=== PATIENT | male | born 1965 | race Caucasian/White ===

== ENCOUNTER 2018-03-13 15:19 | Observation (INO) ==
[2018-03-13] MEDS ORDERED: Valproic Acid INJ 500 MG in 0.9 % Sodium Chloride 100 ML IVPB STA (15:23)
[2018-03-13] MEDS ORDERED: 0.9 % Sodium Chloride 1,000 ML IVC ONE (15:24)
--- NOTE | 2018-03-13 15:27 | Emergency Department Note ---
Disposition Clinical Impression: Status epilepticus Disposition: Admitted As Inpatient Condition: Fair Referrals: NONE,PCP [Primary Care Provider] - Forms: ED Satisfaction Letter General Adult HPI - General Chief complaint: ED Seizure Stated complaint: Seizures Time Seen by Provider: 03/13/18 15:21 - Related Data Home Medications Medication Instructions Recorded Confirmed Phenytoin [Dilantin] 50 mg PO 03/13/18 Allergies Allergy/AdvReac Type Severity Reaction Status Date / Time Penicillins [PCN] Allergy Hives Verified 03/13/18 10:45 Past Medical History - Past Medical History Medical history: Reports: non-contributory Psychiatric history: Reports: no psych history - Social History Smoking Status: Never smoker Smokeless Tobacco Status: Yes Alcohol use: Reports: none Drug use: Reports: none Course Vital Signs Temperature 98.8 F 03/13/18 15:21 Pulse Rate 121 03/13/18 15:21 Respiratory Rate 30 03/13/18 15:21 Blood Pressure 137/87 03/13/18 15:21 O2 Sat by Pulse Oximetry 93 03/13/18 15:21 Temperature 98.8 F 03/13/18 15:21 Pulse Rate 121 03/13/18 15:21 Respiratory Rate 30 03/13/18 15:21 Blood Pressure 137/87 03/13/18 15:21 O2 Sat by Pulse Oximetry 94 03/13/18 15:39 Oxygen Delivery Oxygen Delivery Non Rebreather Mask Medical Decision Making - Lab Data Result diagrams: 03/13/18 16:42 03/13/18 16:42 Lab Results 03/13/18 03/13/18 03/13/18 Range/Units 15:30 15:30 15:43 WBC (4.3-11.1) K/mcL RBC (4.19-5.50) M/mcL Hgb (12.9-16.9) g/dL Hct (37.5-50.1) % MCV (83.0-100.0) fL MCH (28.0-33.3) pg MCHC (31.6-35.5) g/dL RDW (11.5-14.5) % Plt Count (140-400) K/mcL MPV (9.4-12.4) fL Immature Gran % (0-4) % Seg Neutrophils % % Lymphocytes % % Monocytes % % Eosinophils % % Basophils % % Neutrophils # (1.6-8.9) K/mcL Lymphocytes # (0.6-4.6) K/mcL Monocytes # (0.0-1.3) K/mcL Eosinophils # (0.0-0.6) K/mcL Basophils # (0.0-0.2) K/mcL Sodium (136-145) mEq/L Potassium (3.5-5.1) mEq/L Chloride (98-107) mEq/L Carbon Dioxide (23-29) mEq/L BUN (6-20) mg/dL Creatinine (0.70-1.30) mg/dL Est GFR ( Amer) (> 60) Est GFR (Non-Af Amer) (> 60) BUN/Creatinine Ratio (6-26) Glucose (70-105) mg/dL POC Glucose 149 H (70-99) mg/dL Calculated Osmolality (280-300) Calcium (8.6-10.3) mg/dL Magnesium (1.6-2.6) mg/dL Urine Color Yellow (Yellow) Urine Clarity Clear (Clear) Urine pH 5.5 (5.0-8.0) pH Units Ur Specific [place] 1.016 (1.010-1.025) Urine Protein 100 H (Neg-Trace) mg/dL Urine Glucose (UA) Normal (Normal) mg/dL Urine Ketones Negative (Negative) mg/dL Urine Blood Moderate H (Negative) Urine Nitrite Negative (Negative) Urine Bilirubin Negative (Negative) Urine Urobilinogen Normal (Normal) mg/dL Ur Leukocyte Esterase Negative (Negative) Urine Microscopic RBC 0-3 (0-3) per hpf Urine Microscopic WBC 0-3 (0-3) per hpf Ur Squamous Epith Cells Many H (None-Few) per lpf Urine Bacteria None Seen (None-Few) per hpf Hyaline Casts None Seen (None-Few) per lpf Urine Opiates Screen Negative (Uuyrqb=905) ng/mL Ur Barbiturates Screen Negative (Lscobf=510) ng/mL Ur Phencyclidine Scrn Negative (Cutoff=25) ng/mL Ur Amphetamines Screen Negative (Kpagkf=8229) ng/mL U Benzodiazepines Scrn Positive H (Dftivc=971) ng/mL Urine Cocaine Screen Negative (Cutoff= 300) ng/mL U Marijuana (THC) Screen Positive H (Cutoff = 50) ng/mL 03/13/18 03/13/18 Range/Units 16:42 16:42 WBC 21.7 H (4.3-11.1) K/mcL RBC 5.30 (4.19-5.50) M/mcL Hgb 15.5 (12.9-16.9) g/dL Hct 44.5 (37.5-50.1) % MCV 84.0 (83.0-100.0) fL MCH 29.2 (28.0-33.3) pg MCHC 34.8 (31.6-35.5) g/dL RDW 14.0 (11.5-14.5) % Plt Count 307 (140-400) K/mcL MPV 9.3 L (9.4-12.4) fL Immature Gran % 1.2 (0-4) % Seg Neutrophils % 90.7 % Lymphocytes % 3.3 % Monocytes % 4.1 % Eosinophils % 0.2 % Basophils % 0.5 % Neutrophils # 19.7 H (1.6-8.9) K/mcL Lymphocytes # 0.7 (0.6-4.6) K/mcL Monocytes # 0.9 (0.0-1.3) K/mcL Eosinophils # 0.0 (0.0-0.6) K/mcL Basophils # 0.1 (0.0-0.2) K/mcL Sodium 138 (136-145) mEq/L Potassium 3.9 (3.5-5.1) mEq/L Chloride 110 H (98-107) mEq/L Carbon Dioxide 17 L (23-29) mEq/L BUN 8 (6-20) mg/dL Creatinine 1.02 (0.70-1.30) mg/dL Est GFR ( Amer) > 60 (> 60) Est GFR (Non-Af Amer) > 60 (> 60) BUN/Creatinine Ratio 8 (6-26) Glucose 92 (70-105) mg/dL POC Glucose (70-99) mg/dL Calculated Osmolality 284 (280-300) Calcium 8.9 (8.6-10.3) mg/dL Magnesium 2.7 H (1.6-2.6) mg/dL Urine Color (Yellow) Urine Clarity (Clear) Urine pH (5.0-8.0) pH Units Ur Specific [place] (1.010-1.025) Urine Protein (Neg-Trace) mg/dL Urine Glucose (UA) (Normal) mg/dL Urine Ketones (Negative) mg/dL Urine Blood (Negative) Urine Nitrite (Negative) Urine Bilirubin (Negative) Urine Urobilinogen (Normal) mg/dL Ur Leukocyte Esterase (Negative) Urine Microscopic RBC (0-3) per hpf Urine Microscopic WBC (0-3) per hpf Ur Squamous Epith Cells (None-Few) per lpf Urine Bacteria (None-Few) per hpf Hyaline Casts (None-Few) per lpf Urine Opiates Screen (Exyhgr=204) ng/mL Ur Barbiturates Screen (Rpvwtz=368) ng/mL Ur Phencyclidine Scrn (Cutoff=25) ng/mL Ur Amphetamines Screen (Jsdyol=5291) ng/mL U Benzodiazepines Scrn (Esivih=803) ng/mL Urine Cocaine Screen (Cutoff= 300) ng/mL U Marijuana (THC) Screen (Cutoff = 50) ng/mL Attestation Statement - Attestation Attestation: I examined this patient and my medical decision-making was reviewed with the Resident Physician. I agree with the documented findings, disposition and treatment plan as described except to the extent set forth below. Patient to the ED with a chief complaint of breakthrough seizure. History provided by EMS this patient is postictal. Patient has had multiple seizures today. 2 witnessed by EMS. He had 5 mg of Versed IV. Review of his chart reveals that he takes valproic acid. No family or friends present to provide any further history. On examination he is somnolent snoring respirations. Plan. Patient postictal at this time. We will monitor closely. Lobe with valproic acid. Basic labs and back. CT head to check for trauma. Patient now more awake and alert. Following basic commands. Had to be sedated with some Ativan to get a head CT. Family now presents stating he had a recent admission at [facility] for the same way had to be intubated. No further seizure activity in the ED. We will load with with Dilantin likely admission. CT negative. Admitted to medicine with neuro consult. Patient awake and alert at this time. Head CT 03/13/18 15:24 IMPRESSION: No acute intracranial abnormality. 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
[2018-03-13] MEDS ORDERED: PHENYTOIN IVPB ONE (15:37)
[2018-03-13 15:56] LABS: Bilirubin,Urine Negative (Negative); Blood,Urine Moderate (Negative); Clarity,Urine Clear (Clear); Color,Urine Yellow (Yellow); Glucose,Urine (UA) Normal (Normal); Ketones,Urine Negative (Negative); Leukocyte Esterase,Urine Negative (Negative); Nitrite,Urine Negative (Negative); PH,Urine 5.5 pH Units (5.0-8.0); Protein,Urine 100 mg/dL (Neg-Trace); Specific Gravity,Urine 1.016 (1.010-1.025); Urobilinogen,Urine Normal (Normal)
[2018-03-13 15:59] LABS: Bacteria,Urine None Seen per hpf (None-Few); Hyaline Casts,Urine None Seen per lpf (None-Few); RBC,Urine 0-3 per hpf (0-3); Squamous Epithelial Cell,Urine Many per lpf (None-Few); WBC,Urine 0-3 per hpf (0-3)
--- NOTE | 2018-03-13 16:04 | Emergency Department Note ---
Disposition Clinical Impression: Status epilepticus Disposition: Admitted As Inpatient Condition: Fair Time of Disposition: 18:01 Seizure HPI - General Chief Complaint: ED Seizure Stated Complaint: Seizures Time Seen by Provider: 03/13/18 15:21 Source: EMS Mode of arrival: EMS Limitations: no limitations Nursing Notes Reviewed: Yes Vital Signs Reviewed: Yes - History of Present Illness HPI Narrative: Patient presents to the ED via EMS and was seen and evaluated upon arrival. Patient has a history of seizure disorder and is followed by a neurologist here. 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 He is supposed to be taking 150 mg of phenytoin 3 times a day. However, patient's family states that he has been noncompliant with this. According EMS. The patient had 2 witnessed generalized tonic-clonic seizures today. When EMS arrived they state that the patient was alert and responding but when they got him onto the cot. He had another seizure and they administered 5 mg of Versed. Upon arrival to the ED, he is postictal and unable to answer any questions. Family reported no recent falls or injury. States he is otherwise healthy. - Related Data Home Medications Medication Instructions Recorded Confirmed Phenytoin [Dilantin] 50 mg PO 03/13/18 Allergies Allergy/AdvReac Type Severity Reaction Status Date / Time Penicillins [PCN] Allergy Hives Verified 03/13/18 10:45 Review of Systems: As reviewed in the HPI. All other systems reviewed are negative or normal. Past Medical History - Past Medical History Attestation: Yes The following information was validated with the patient. Source: patient, old records reviewed, obtained from family Medical history: Reports: non-contributory Psychiatric history: Reports: no psych history - Social History Smoking Status: Never smoker Smokeless Tobacco Status: Yes Alcohol use: Reports: none Drug use: Reports: none Physical Exam - General Limitations: other (Postictal) General appearance: obtunded - Head Head exam: atraumatic, normocephalic, normal inspection - Eye Eye exam: Present: PERRL - ENT ENT exam: other (Extremely poor dentition) - Chest Chest inspection: Present: normal inspection, symmetric chest wall rise - Respiratory Respiratory exam: Present: other (Course breath sounds). Absent: normal lung sounds bilaterally, respiratory distress - Cardiovascular Cardiovascular exam: Present: tachycardia, normal heart sounds - Abdominal Exam Abdominal exam: Present: soft, Non-Tender. Absent: tenderness, distention, guarding, rebound, rigidity - Extremities Exam Extremities exam: Present: normal capillary refill. Absent: pedal edema - Expanded Lower Extremity Exam Hip/Pelvis exam: Present: pelvis stable - Neurological Exam Neurological exam: Present: CN II-XII intact (Grossly, the patient is obtunded) . Absent: alert, oriented X3 - Skin Skin exam: Present: warm, dry, intact, normal color Course Course Narrative: Patient presenting after a seizure. He did get 5 mg of Versed prior to arrival and is currently postictal. We will see if he starts to wake up. We will get labs and a head CT. Likely admission, since this is an increase from his baseline. - Reevaluation(s) Reevaluation #1: Head CT did not show any acute changes. Patient is now awake, alert, oriented. Not complaining of anything. He will be admitted to the hospitalist service with neurology consult. I spoke with the hospitalist Dr. Alcaraz and the neurologist Dr. Walden. Both agreeable to plan. Patient was loaded with phenytoin and his levels are currently pending. Vital Signs Temperature 98.8 F 03/13/18 15:21 Pulse Rate 121 03/13/18 15:21 Respiratory Rate 30 03/13/18 15:21 Blood Pressure 137/87 03/13/18 15:21 O2 Sat by Pulse Oximetry 93 03/13/18 15:21 Temperature 98.8 F 03/13/18 15:21 Pulse Rate 74 03/13/18 18:19 Respiratory Rate 18 03/13/18 18:19 Blood Pressure 116/87 03/13/18 18:19 O2 Sat by Pulse Oximetry 98 03/13/18 18:19 Oxygen Delivery Oxygen Delivery Room Air Seizure - Medical Records Medical records reviewed: Yes I reviewed the patient's medical records. - Lab Data Lab results reviewed: Yes I reviewed the patient's lab results. Result diagrams: 03/13/18 16:42 03/13/18 16:42 Lab Results 03/13/18 03/13/18 03/13/18 Range/Units 15:30 15:30 15:43 WBC (4.3-11.1) K/mcL RBC (4.19-5.50) M/mcL Hgb (12.9-16.9) g/dL Hct (37.5-50.1) % MCV (83.0-100.0) fL MCH (28.0-33.3) pg MCHC (31.6-35.5) g/dL RDW (11.5-14.5) % Plt Count (140-400) K/mcL MPV (9.4-12.4) fL Immature Gran % (0-4) % Seg Neutrophils % % Lymphocytes % % Monocytes % % Eosinophils % % Basophils % % Neutrophils # (1.6-8.9) K/mcL Lymphocytes # (0.6-4.6) K/mcL Monocytes # (0.0-1.3) K/mcL Eosinophils # (0.0-0.6) K/mcL Basophils # (0.0-0.2) K/mcL Sodium (136-145) mEq/L Potassium (3.5-5.1) mEq/L Chloride (98-107) mEq/L Carbon Dioxide (23-29) mEq/L BUN (6-20) mg/dL Creatinine (0.70-1.30) mg/dL Est GFR ( Amer) (> 60) Est GFR (Non-Af Amer) (> 60) BUN/Creatinine Ratio (6-26) Glucose (70-105) mg/dL POC Glucose 149 H (70-99) mg/dL Calculated Osmolality (280-300) Calcium (8.6-10.3) mg/dL Magnesium (1.6-2.6) mg/dL Urine Color Yellow (Yellow) Urine Clarity Clear (Clear) Urine pH 5.5 (5.0-8.0) pH Units Ur Specific [place] 1.016 (1.010-1.025) Urine Protein 100 H (Neg-Trace) mg/dL Urine Glucose (UA) Normal (Normal) mg/dL Urine Ketones Negative (Negative) mg/dL Urine Blood Moderate H (Negative) Urine Nitrite Negative (Negative) Urine Bilirubin Negative (Negative) Urine Urobilinogen Normal (Normal) mg/dL Ur Leukocyte Esterase Negative (Negative) Urine Microscopic RBC 0-3 (0-3) per hpf Urine Microscopic WBC 0-3 (0-3) per hpf Ur Squamous Epith Cells Many H (None-Few) per lpf Urine Bacteria None Seen (None-Few) per hpf Hyaline Casts None Seen (None-Few) per lpf Urine Opiates Screen Negative (Yotykk=442) ng/mL Ur Barbiturates Screen Negative (Geyokm=109) ng/mL Phenytoin (10.0-20.0) mcg/mL Ur Phencyclidine Scrn Negative (Cutoff=25) ng/mL Ur Amphetamines Screen Negative (Diaijh=2259) ng/mL U Benzodiazepines Scrn Positive H (Epwnfp=443) ng/mL Urine Cocaine Screen Negative (Cutoff= 300) ng/mL U Marijuana (THC) Screen Positive H (Cutoff = 50) ng/mL 03/13/18 03/13/18 Range/Units 16:42 16:42 WBC 21.7 H (4.3-11.1) K/mcL RBC 5.30 (4.19-5.50) M/mcL Hgb 15.5 (12.9-16.9) g/dL Hct 44.5 (37.5-50.1) % MCV 84.0 (83.0-100.0) fL MCH 29.2 (28.0-33.3) pg MCHC 34.8 (31.6-35.5) g/dL RDW 14.0 (11.5-14.5) % Plt Count 307 (140-400) K/mcL MPV 9.3 L (9.4-12.4) fL Immature Gran % 1.2 (0-4) % Seg Neutrophils % 90.7 % Lymphocytes % 3.3 % Monocytes % 4.1 % Eosinophils % 0.2 % Basophils % 0.5 % Neutrophils # 19.7 H (1.6-8.9) K/mcL Lymphocytes # 0.7 (0.6-4.6) K/mcL Monocytes # 0.9 (0.0-1.3) K/mcL Eosinophils # 0.0 (0.0-0.6) K/mcL Basophils # 0.1 (0.0-0.2) K/mcL Sodium 138 (136-145) mEq/L Potassium 3.9 (3.5-5.1) mEq/L Chloride 110 H (98-107) mEq/L Carbon Dioxide 17 L (23-29) mEq/L BUN 8 (6-20) mg/dL Creatinine 1.02 (0.70-1.30) mg/dL Est GFR ( Amer) > 60 (> 60) Est GFR (Non-Af Amer) > 60 (> 60) BUN/Creatinine Ratio 8 (6-26) Glucose 92 (70-105) mg/dL POC Glucose (70-99) mg/dL Calculated Osmolality 284 (280-300) Calcium 8.9 (8.6-10.3) mg/dL Magnesium 2.7 H (1.6-2.6) mg/dL Urine Color (Yellow) Urine Clarity (Clear) Urine pH (5.0-8.0) pH Units Ur Specific [place] (1.010-1.025) Urine Protein (Neg-Trace) mg/dL Urine Glucose (UA) (Normal) mg/dL Urine Ketones (Negative) mg/dL Urine Blood (Negative) Urine Nitrite (Negative) Urine Bilirubin (Negative) Urine Urobilinogen (Normal) mg/dL Ur Leukocyte Esterase (Negative) Urine Microscopic RBC (0-3) per hpf Urine Microscopic WBC (0-3) per hpf Ur Squamous Epith Cells (None-Few) per lpf Urine Bacteria (None-Few) per hpf Hyaline Casts (None-Few) per lpf Urine Opiates Screen (Cqvkib=534) ng/mL Ur Barbiturates Screen (Juhkte=149) ng/mL Phenytoin < 0.5 L (10.0-20.0) mcg/mL Ur Phencyclidine Scrn (Cutoff=25) ng/mL Ur Amphetamines Screen (Ceyubf=1698) ng/mL U Benzodiazepines Scrn (Yeegjv=199) ng/mL Urine Cocaine Screen (Cutoff= 300) ng/mL U Marijuana (THC) Screen (Cutoff = 50) ng/mL - Radiology Data Radiology results reviewed: Yes I reviewed the patient's radiology results. - EKG Data EKG attestation: Yes I reviewed and interpreted this EKG. EKG results narrative: Sinus tach, rate 119, AL interval 173,, QRS 86, QTC 368, RVH, no acute ischemic changes
[2018-03-13] MEDS ORDERED: *HR* LORazepam 2 MG/ML VIAL IVP ONE ×2 (16:07→16:21)
[2018-03-13] MEDS ORDERED: *HR* LORazepam 2 MG/ML VIAL ONE (16:22)
[2018-03-13 16:46] LABS: Amphetamine Screen,Urine Negative ng/mL (Cutoff=1000); Barbiturate Screen,Urine Negative ng/mL (Cutoff=200); Benzodiazepines Screen,Urine Positive ng/mL (Cutoff=200); Cannabinoid Screen,Urine Positive ng/mL (Cutoff = 50); Cocaine Screen,Urine Negative ng/mL (Cutoff= 300); Opiate Screen,Urine Negative ng/mL (Cutoff=300); Phencyclidine Screen,Urine Negative ng/mL (Cutoff=25)
[2018-03-13 17:04] LABS: Basophils # 0.1 K/mcL (0.0-0.2); Basophils % 0.5 %; Eosinophils % 0.2 %; Hematocrit 44.5 % (37.5-50.1); Hemoglobin 15.5 g/dL (12.9-16.9); Immature Granulocytes % 1.2 % (0-4); Lymphocytes # 0.7 K/mcL (0.6-4.6); Lymphocytes % 3.3 %; Mean Corpuscular HGB Conc 34.8 g/dL (31.6-35.5); Mean Corpuscular Hemoglobin 29.2 pg (28.0-33.3); Mean Platelet Volume 9.3 fL (9.4-12.4); Monocytes # 0.9 K/mcL (0.0-1.3); Monocytes % 4.1 %; Neutrophils # 19.7 K/mcL (1.6-8.9); Platelet Count 307 K/mcL (140-400); Segmented Neutrophils % 90.7 %
[2018-03-13 17:24] LABS: BUN/Creatinine Ratio 8 (6-26); Blood Urea Nitrogen 8 mg/dL (6-20); Calcium 8.9 mg/dL (8.6-10.3); Carbon Dioxide 17 mEq/L (23-29); Chloride 110 mEq/L (98-107); Glucose 92 mg/dL (70-105); Magnesium 2.7 mg/dL (1.6-2.6); Osmolality,Calculated 284 (280-300); Potassium 3.9 mEq/L (3.5-5.1); Sodium 138 mEq/L (136-145); eGFR For African Americans > 60 (> 60); eGFR For Non-African Americans > 60 (> 60)
[2018-03-13] MEDS ORDERED: Naloxone 0.4 MG/ML INJ IVP PRN (17:57)
[2018-03-13] MEDS ORDERED: *HR* LORazepam 2 MG/ML VIAL IVP PRN (18:00)
[2018-03-13 18:03] LABS: Phenytoin (Dilantin) < 0.5 mcg/mL (10.0-20.0)
[2018-03-13] MEDS ORDERED: Sodium Bicarbonate 150 MEQ in D5% in Water 1,000 ML IVC SCH (18:15)
--- NOTE | 2018-03-13 18:17 | Internal Med History&Physical ---
Date of Encounter: 03/13/18 Time of Encounter: 17:45 Internal Medicine - H&P: HPI Chief complaint: seizure Admitted From: Home Plans for Post Hospital Care: Home History of present illness: Mr. Kumar is a 52 year old male with PMH of seizures who was brought to the ER by EMS s/p a witnessed tonic clonic seizure. Pt is currently on AAO x 3 and denies any discomfort, however states he does not recall any of the preceding events prior or after the seizure. Pt's seizure was witnessed by his brother in law. Pt was noted to have loss of bladder control during his seizure. Pt reports of having a seizure earlier this week as well. He lives alone and is unkept, with poor oral hygiene. He reports of smoking marijuana few times a week. As per his brother (present at bedside), pt has not been compliant with his medication. As per pharmacy records, pt has not filled his prescription in the last two weeks. His phenytoin level is less than 0.5. Currently he is resting in bed and denies any headache, dizziness, sob, chest pain, n/v, fever, or chills. Past Med Surg Social Fam HX - Past Medical History Medical history: non-contributory Psychiatric history: no psych history - Social History Smoking Status: Never smoker Smokeless Tobacco Status: Yes Alcohol use: none Drug use: none Internal Medicine - H&P: Meds Phenytoin [Dilantin] 50 mg PO 03/13/18 [History] 3 Allergy/AdvReac Type Severity Reaction Status Date / Time Penicillins [PCN] Allergy Hives Verified 03/13/18 10:45 All Systems PM: A 10-system review of systems was performed and is negative for pertinent findings except as documented above in the HPI. - Constitutional Constitutional: as per HPI, no chills, no excessive sweating, no fatigue, no falls, no lethargy, no malaise, no night sweats - Constitutional Vitals: Temp Pulse Resp BP Pulse Ox 98.8 F 121 30 137/87 94 03/13/18 15:21 03/13/18 15:21 03/13/18 15:21 03/13/18 15:21 03/13/18 15:39 General appearance: Present: A&O X 3 (dishevele, unkept, poor oral hygiene), no acute distress - Head Head exam: Present: atraumatic, normocephalic - Eye Eye exam: Present: conjuntiva pink, sclera anicteric - Respiratory Respiratory exam: Present: CTAB. Absent: accessory muscle use, rales, rhonchi, wheezes - Cardiovascular Cardiovascular exam: Present: RRR, +S1, +S2. Absent: diastolic murmur, gallop, rubs, systolic murmur - GI/Abdominal GI/Abdominal exam: Present: normal bowel sounds, soft, no peritoneal signs. Absent: distended, tenderness - Extremities Exam Extremities exam: Present: warm, radial pulses palpable and symmetrical. Absent : calf tenderness, cyanotic, pedal edema - Neurological Exam Neurological exam: Present: oriented X3 Internal Med - H&P Results - Labs CBC & Chem 7: 03/13/18 16:42 03/13/18 16:42 Labs: Short CBC 03/13/18 Range/Units 16:42 WBC 21.7 H (4.3-11.1) K/mcL Hgb 15.5 (12.9-16.9) g/dL Hct 44.5 (37.5-50.1) % Plt Count 307 (140-400) K/mcL Neutrophils # 19.7 H (1.6-8.9) K/mcL BMP 03/13/18 16:42 Sodium 138 Potassium 3.9 Chloride 110 H Carbon Dioxide 17 L BUN 8 Creatinine 1.02 Glucose 92 Calcium 8.9 Urine 03/13/18 Range/Units 15:30 Urine Color Yellow (Yellow) Urine Clarity Clear (Clear) Urine pH 5.5 (5.0-8.0) pH Units Ur Specific [place] 1.016 (1.010-1.025) Urine Protein 100 H (Neg-Trace) mg/dL Urine Glucose (UA) Normal (Normal) mg/dL - Impressions ITS Impressions Head CT 03/13/18 15:24 IMPRESSION: No acute intracranial abnormality. 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 Diffuse atrophic changes with findings suggesting chronic microvascular ischemia D/ / Jose Cao MD / Jsoe Cao MD Interpreting Provider: Jose Cao MD - Assessment and plan (1) Status epilepticus Current Visit: Yes Status: Acute Assessment and plan: Recurrent seizures likely secondary to med noncompliance Phenytoin level less than 0.5 Pt received Phenytoin 1275mg IV in the ER continue Phenytoin 100mg PO q8h ativan 1mg IV q6h prn seizure will continue to closely monitor neurology evaluation requested by the ER physician CT head report reviewed (2) Metabolic acidosis Current Visit: Yes Status: Acute Assessment and plan: likely secondary to seizure will start pt on bicarb gtt (3amp in D5w at 75cc/hr x one bag) will continue to closely monitor (3) Leukocytosis Current Visit: Yes Status: Acute Assessment and plan: likely reactive no clinical signs of infectious etiology present at this time will continue to monitor Qualifiers: Leukocytosis type: unspecified Qualified Code(s): D72.829 - Elevated white blood cell count, unspecified (4) DVT prophylaxis Current Visit: Yes Status: Acute Assessment and plan: heparin SQ - Time Spent With Patient Total time spent is greater than 50% in coordination of care (as documented) at patient's floor/unit and/or counseling patient:
[2018-03-13] MEDS: *HR* Heparin 5,000 UNIT/ML VIAL SQ SCH (20:50)
[2018-03-14] MEDS: *HR* Heparin 5,000 UNIT/ML VIAL SQ SCH ×2 (01:54→08:57)
[2018-03-14 06:46] LABS: BUN/Creatinine Ratio 8 (6-26); Blood Urea Nitrogen 8 mg/dL (6-20); Calcium 8.5 mg/dL (8.6-10.3); Carbon Dioxide 24 mEq/L (23-29); Chloride 109 mEq/L (98-107); Glucose 91 mg/dL (70-105); Magnesium 2.4 mg/dL (1.6-2.6); Osmolality,Calculated 286 (280-300); Phosphorous 3.4 mg/dL (2.7-4.5); Potassium 3.9 mEq/L (3.5-5.1); Sodium 139 mEq/L (136-145); eGFR For African Americans > 60 (> 60); eGFR For Non-African Americans > 60 (> 60)
[2018-03-14 06:48] VITALS: BP 134/80
[2018-03-14 06:51] LABS: Basophils # 0.1 K/mcL (0.0-0.2); Eosinophils # 0.2 K/mcL (0.0-0.6); Eosinophils % 1.6 %; Hematocrit 43.5 % (37.5-50.1); Hemoglobin 14.5 g/dL (12.9-16.9); Immature Granulocytes % 0.3 % (0-4); Lymphocytes # 3.4 K/mcL (0.6-4.6); Lymphocytes % 25.1 %; Mean Corpuscular HGB Conc 33.3 g/dL (31.6-35.5); Mean Corpuscular Hemoglobin 27.9 pg (28.0-33.3); Mean Corpuscular Volume 83.8 fL (83.0-100.0); Mean Platelet Volume 9.4 fL (9.4-12.4); Monocytes # 1.1 K/mcL (0.0-1.3); Monocytes % 7.8 %; Neutrophils # 8.7 K/mcL (1.6-8.9); Platelet Count 318 K/mcL (140-400); Red Blood Count 5.19 M/mcL (4.19-5.50); Red Cell Distribution Width 14.2 % (11.5-14.5); Segmented Neutrophils % 64.2 %
[2018-03-14] MEDS ORDERED: Divalproex (24 HR) 500 MG TABLET PO SCH (09:15)
--- NOTE | 2018-03-14 09:42 | Discharge Summary ---
Date of Encounter: 03/14/18 Time of Encounter: 09:29 - Discharge Diagnosis (1) Seizure disorder Priority: Primary Status: Acute Assessment and Plan: per hx. Has not seen Neurology in over 2 years. Presented to ED after a witnessed tonic clonic seizure. Reportedly taking Dilantin at home; Dilantin level 0.5. Loaded with Dilantin in ED. Likely secondary to medication non- compliance. Evaluated by Neurology who recommended changing Dilantin to Depakote. Received one time dose Depakote prior to discharge. No further seizure activity during hospitalization. Strongly advised medication compliance and Neurology follow-up (2) Metabolic acidosis Priority: Primary Status: Resolved Assessment and Plan: likely secondary to seizure; resolved with bicarb gtt (3) Leukocytosis Priority: Primary Status: Resolved Assessment and Plan: WBC 21K; afebrile. No tachycardia or hypotension. UA negative, lactic acid not drawn. No signs or symptoms of infection. Suspect reactive. WBC 11K at discharge. Qualifiers: Leukocytosis type: unspecified Qualified Code(s): D72.829 - Elevated white blood cell count, unspecified (4) Polysubstance (excluding opioids) dependence Priority: Primary Status: Acute Assessment and Plan: UDS positive for benzos and marijuana. Cessation advised. Hospital course: See assessment and plan for hospital course Discharge discussed with: patient (Seen and examined at bedside, patient is new to me. Information obtained from chart review and patient report. Says he feels back to baseline and once to discharge home today. No further seizure activity ; reports medication compliance at home. Strongly encouraged medication compliance and follow-up with neurology.) - Time Spent with Patient Total time spent providing and/or coordinating discharge services: - Discharge Medications Prescriptions: Divalproex (24 HR) [Depakote ER (24 HR)] 1,000 mg PO HS #60 tab.er.24h Home Medications: Divalproex (24 HR) [Depakote ER (24 HR)] 1,000 mg PO HS #60 tab.er.24h 03/14/18 [Rx] Allergies/Adverse Reactions: 3 Allergy/AdvReac Type Severity Reaction Status Date / Time Penicillins [PCN] Allergy Hives Verified 03/13/18 10:45 Date of admission: 03/13/18 18:04 Primary care physician: PCP NONE Discharging clinician: Delilah Her Anticipated date of discharge: 03/14/18 - Constitutional Vitals: Temp Pulse Resp BP Pulse Ox 98.6 F 64 20 134/80 95 03/14/18 06:47 03/14/18 06:47 03/14/18 06:47 03/14/18 06:47 03/14/18 06:47 General appearance: Present: A&O X 3 (dishevele, unkept, poor oral hygiene), no acute distress - Head Head exam: Present: atraumatic, normocephalic - Eye Eye exam: Present: PERRL, conjuntiva pink, sclera anicteric Pupils: Present: PERRL - Neck Neck exam general surgery: Present: supple, trachea midline. Absent: lymphadenopathy - Respiratory Respiratory exam: Present: CTAB. Absent: accessory muscle use, rales, rhonchi, wheezes - Cardiovascular Cardiovascular exam: Present: RRR, +S1, +S2. Absent: diastolic murmur, gallop, rubs, systolic murmur - GI/Abdominal GI/Abdominal exam: Present: normal bowel sounds, soft, no peritoneal signs. Absent: distended, tenderness - Extremities Exam Extremities exam: Present: warm, radial pulses palpable and symmetrical. Absent : calf tenderness, cyanotic, pedal edema - Neurological Exam Neurological exam: Present: CN II-XII intact, oriented X3, no focal deficits. Absent: pronater drift, facial droop, speech deficit - Psychiatric Additional comments: Pleasant and cooperative. Denies SI/HI. - Skin Skin exam: Present: dry, intact - Patient Status Disposition: Home, Self-Care Condition: Good Functional capacity at discharge: independent ambulation Overall status at discharge: patient is back to baseline - Discharge Instructions Instructions: Divalproex (By mouth), Epilepsy (DC) Follow Up With: Richard Walden MD [Partnered Physician] - (Please call the office for a follow-up when if you have not heard from them within 2 weeks) NONE,PCP [Primary Care Provider] - (Please call [phone] if you do not have a primary care physician to establish care. If you do primary care physician please follow up with them within 7-10 days) - Diet and Activity Activity: increase activity as tolerated Diet: advance to your usual diet
--- NOTE | 2018-03-14 11:00 | Neurology - Consult Note ---
Date of Encounter: 03/14/18 Time of Encounter: 10:52 Assessment and Plan (1) Seizure disorder Current Visit: Yes Status: Acute Patient with known seizure disorder, been discharged from [facility] due to multiple no shows. May not been compliant with antiepileptic therapy or could be rapid Dilantin metabolizer. Per medical history, was doing reasonably well on Depakote DR 1000mg daily therefore will switch him to Depakote DR 1000mg daily. He will need to follow up with his PCP or neurologist of other practice. He is medically stable and ready to be discharged home from neurology perspective Total time spent on this case is approximately 30 minutes History of Present Illness Chief complaint: seizures HPI: Mr. Kumar is a 52 year old male with PMH significant for known seizure disorder , history of traumatic brain injury who developed two witnessed seizures. Patient known to me and carries diagnosis of traumatic brain injury and seizure disorder. Last seen in office 2016 and has been doing reasonably well on Depakote DR 1000mg daily ( two tablets of 500mg of depakote DR). He had a couple of no shows and was discharged from the neurology office. Patient since then has been taking dilantin 3 tablet tid by some doctor but he tells me that he could not remember. He does not remember how/where/why his seizure medication changed to Dilantin. His phenytoin level in ER was <0.5. He states that he has been taking his medications ( dilantin) regularly. It is unclear whether he is a rapid phenytoin metabolizer or he was not compliant. Currently the patient denies any specific discomforts. His language function is intact. He seems to have short term memory difficulty which is chronic in nature Past Med Surg Social Fam HX - Past Medical History Medical history: non-contributory Psychiatric history: no psych history - Social History Smoking Status: Current every day smoker Packs per day: 1 Smokeless Tobacco Status: No Alcohol use: none Drug use: none - Family History Mother Living Status: Age at : 74 Cause of : cancer Hx Family Cancer: Yes Medications and Allergies Divalproex (24 HR) [Depakote ER (24 HR)] 1,000 mg PO HS #60 tab.er.24h 03/14/18 [Rx] 3 Allergy/AdvReac Type Severity Reaction Status Date / Time Penicillins [PCN] Allergy Hives Verified 03/13/18 10:45 All Systems: The remainder of the systems were reviewed and are negative Physical Examination - Vital Signs Vital Signs: Initial Vital Signs Temp Pulse Resp BP Pulse Ox 98.8 F 121 30 137/87 93 03/13/18 15:21 03/13/18 15:21 03/13/18 15:21 03/13/18 15:21 03/13/18 15:21 - Neurologic Detailed motor examination: full strength in all major muscle groups Motor examination - right side: 5/5: deltoids, biceps, triceps, wrist flexion, wrist extension, die forger, hip flexors, tibialis Anterior, quadriceps, toe extension (EHL), plantarflexion Motor examination - left side: 5/5: deltoids, biceps, triceps, wrist flexion, wrist extension, hip flexors, die forger, quadriceps, tibialis Anterior, toe extension (EHL), plantarflexion Reflexes: Biceps: 2+, Triceps: 2+, Brachioradialis: 2+, Patella: 2+, Achilles: 2 + Mental Status Examination: awake, alert, oriented to person, oriented to place, oriented to time, follows commands appropriately, answers questions appropriately, no agnosia, no aphasia, no aproxia Cranial nerve examination: PERRL, EOMI, visual hardwick intact, corneal reflexes brisk symmetrically, sensory to face intact, mastication intact, no facial asymmetry is present, no dysarthria, hearing is intact symmetrically, soft palate elevates bilaterally upon phonation, gag reflex intact, flexes SCM and trapezius muscles symmetrically with full power, tongue protrudes midline, no atrophy or facial fasiculations present Cerebellar examination: no dysmetria, performs finger to nose and heel to torres symmetrically without ataxia, no gait ataxia, no truncal ataxia, no difficulty with rapid alternating movements Results - Laboratory Findings CBC and BMP: 03/14/18 05:48 03/14/18 05:48 Abnormal lab findings: Abnormal lab results WBC 13.5 K/mcL (4.3-11.1) H 03/14/18 05:48 MCH 27.9 pg (28.0-33.3) L 03/14/18 05:48 Chloride 109 mEq/L (98-107) H 03/14/18 05:48 POC Glucose 149 mg/dL (70-99) H 03/13/18 15:43 Calcium 8.5 mg/dL (8.6-10.3) L 03/14/18 05:48 Urine Protein 100 mg/dL (Neg-Trace) H 03/13/18 15:30 Urine Blood Moderate (Negative) H 03/13/18 15:30 Ur Squamous Epith Cells Many per lpf (None-Few) H 03/13/18 15:30 Phenytoin < 0.5 mcg/mL (10.0-20.0) L 03/13/18 16:42 U Benzodiazepines Scrn Positive ng/mL (Iefril=985) H 03/13/18 15:30 U Marijuana (THC) Screen Positive ng/mL (Cutoff = 50) H 03/13/18 15:30 - Diagnostic Findings Additional findings: CT OF THE HEAD WITHOUT CONTRAST 03/13/2018 5:01 pm TECHNIQUE: CT of the head was performed without the administration of intravenous contrast. Dose modulation, iterative reconstruction, and/or weight based adjustment of the mA/kV was utilized to reduce the radiation dose to as low as reasonably achievable. COMPARISON: 11/28/2017 HISTORY: ORDERING SYSTEM PROVIDED HISTORY: satus epileticus FINDINGS: BRAIN/VENTRICLES: The ventricles and sulci are diffusely enlarged. Again seen is encephalomalacia in the right frontal lobe more than the left. This is unchanged. No acute intracranial hemorrhage is identified. ORBITS: The visualized portion of the orbits demonstrate no acute abnormality. SINUSES: The visualized paranasal sinuses and mastoid air cells demonstrate no acute abnormality. SOFT TISSUES/SKULL: No acute abnormality of the visualized skull or soft tissues. CT/CT head/brain wo con IMPRESSION: No acute intracranial abnormality. 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 If you do primary care physician please follow up with them within 7-10 days) Richard Walden MD [Partnered Physician] - 04/12/18 8:00 am () Prescriptions: Divalproex (24 HR) [Depakote ER (24 HR)] 1,000 mg PO HS #60 tab.er.24h
--- NOTE | 2018-03-14 14:05 | Electrocardiograph Report ---
[address] [address] Test Date: 2018-03-13 Pat Name: Sandip Kumar Department: 104 Room: [facility] Gender: M Neuro Ophthalmologist: GENTRY : 1965 Requested By: Keisha See Order Number: [id number] Reading MD: Kelly Dhaliwal Measurements Intervals [place] Rate: 119 P: 79 DE: 173 QRS: 255 QRSD: 86 T: 71 QT: 298 QTc: 368 Interpretive Statements SINUS TACHYCARDIA LEFTWARD AXIS Electronically Signed On 03-14-2018 14:04:15 EDT by Kelly Dhaliwal
[2018-03-16 23:53] LABS: Valproate Free <7 ug/mL (7-23)
[2018-03-17 07:26] LABS: Phenytoin (Dilantin) Free <0.5 ug/mL (1.0-2.5); Valproate Total <7 ug/mL (50-125)
== END 2018-03-14 11:43 | disposition home or self-care (01) ==
LOC: EMEROO 15:19 → 3BNU 15:19
PROVIDERS: ADMIT Internal Medicine Nephrology; ATTEND Internal Medicine Nephrology

== ENCOUNTER 2020-05-18 08:56 | Observation (INO) ==
[2020-05-18 09:41] LABS: Basophils # 0.2 K/mcL (0.0-0.2); Basophils % 1.9 %; Eosinophils # 0.2 K/mcL (0.0-0.6); Eosinophils % 1.9 %; Hematocrit 47.4 % (37.5-50.1); Hemoglobin 15.2 g/dL (12.9-16.9); Immature Granulocytes % 0.3 % (0-4); Lymphocytes # 3.7 K/mcL (0.6-4.6); Lymphocytes % 34.8 %; Mean Corpuscular HGB Conc 32.1 g/dL (31.6-35.5); Mean Corpuscular Hemoglobin 27.8 pg (28.0-33.3); Mean Corpuscular Volume 86.7 fL (83.0-100.0); Monocytes # 0.8 K/mcL (0.0-1.3); Monocytes % 7.8 %; Neutrophils # 5.8 K/mcL (1.6-8.9); Platelet Count 356 K/mcL (140-400); Red Blood Count 5.47 M/mcL (4.19-5.50); Red Cell Distribution Width 15.5 % (11.5-14.5); Segmented Neutrophils % 53.3 %; White Blood Count 10.8 K/mcL (4.3-11.1)
[2020-05-18 09:55] LABS: INR 1.6
[2020-05-18 09:57] LABS: Activated Partial Thrombo Time 43.4 Seconds (26.0-36.0)
[2020-05-18] MEDS ORDERED: *HR* Heparin 5,000 UNIT/ML VIAL IVP PRN (10:42)
[2020-05-18] MEDS ORDERED: *HR* Heparin 5,000 UNIT/ML VIAL IVP ONE (10:42)
[2020-05-18 10:55] LABS: Alanine Aminotransferase 11 Units/L (7-52); Albumin 3.7 g/dL (3.5-5.7); Albumin/Globulin Ratio 1.3 (1.1-2.2); Alkaline Phosphatase 115 Units/L (34-104); Aspartate Amino Transferase 18 Units/L (13-39); BUN/Creatinine Ratio 9 (6-26); Bilirubin,Total 0.4 mg/dL (0.3-1.0); Blood Urea Nitrogen 9 mg/dL (6-20); Calcium 9.2 mg/dL (8.6-10.3); Carbon Dioxide 25 mEq/L (23-29); Chloride 104 mEq/L (98-107); Globulin 2.8 g/dL (2.4-3.5); Glucose 81 mg/dL (70-105); Osmolality,Calculated 282 (280-300); Potassium 4.3 mEq/L (3.5-5.1); Sodium 137 mEq/L (136-145); Total Protein 6.5 g/dL (6.4-8.9); eGFR For African Americans > 60 (> 60); eGFR For Non-African Americans > 60 (> 60)
[2020-05-18] MEDS ORDERED: *HR* HYDROcodone/Acet 5/325 mg TABLET PO PRN (10:55)
[2020-05-18] MEDS ORDERED: Naloxone 0.4 MG/ML INJ IVP PRN (10:55)
[2020-05-18] MEDS ORDERED: Ondansetron 4 MG/2 ML VIAL IVP PRN (10:55)
[2020-05-18] MEDS ORDERED: *HR* OxyCODONE/APAP 5/325 TABLET PO PRN (10:58)
[2020-05-18] MEDS: Heparin 25,000 UNIT/250 ML D5W 25,000 UNIT/250 ML IV.SOLN IVC SCH (11:45)
[2020-05-18] MEDS: Valproic Acid Oral Soln 250 MG/5 ML UDC PO SCH ×2 (13:23→18:11)
[2020-05-18] MEDS: levETIRAcetam 250 MG TABLET PO SCH (21:07)
[2020-05-19] MEDS: Valproic Acid Oral Soln 250 MG/5 ML UDC PO SCH ×4 (00:02→16:48)
[2020-05-19 01:16] LABS: Basophils # 0.2 K/mcL (0.0-0.2); Basophils % 2.1 %; Eosinophils # 0.3 K/mcL (0.0-0.6); Eosinophils % 2.5 %; Hematocrit 45.3 % (37.5-50.1); Hemoglobin 14.7 g/dL (12.9-16.9); Immature Granulocytes % 0.1 % (0-4); Lymphocytes # 4.5 K/mcL (0.6-4.6); Lymphocytes % 45.3 %; Mean Corpuscular HGB Conc 32.5 g/dL (31.6-35.5); Mean Corpuscular Hemoglobin 28.3 pg (28.0-33.3); Mean Corpuscular Volume 87.1 fL (83.0-100.0); Mean Platelet Volume 9.7 fL (9.4-12.4); Monocytes # 0.8 K/mcL (0.0-1.3); Monocytes % 8.4 %; Neutrophils # 4.1 K/mcL (1.6-8.9); Platelet Count 315 K/mcL (140-400); Red Cell Distribution Width 15.6 % (11.5-14.5); Segmented Neutrophils % 41.6 %; White Blood Count 9.9 K/mcL (4.3-11.1)
[2020-05-19 01:30] LABS: INR 1.3
[2020-05-19 01:32] LABS: Activated Partial Thrombo Time 45.8 Seconds (26.0-36.0)
[2020-05-19 01:34] LABS: BUN/Creatinine Ratio 14 (6-26); Blood Urea Nitrogen 12 mg/dL (6-20); Calcium 8.8 mg/dL (8.6-10.3); Carbon Dioxide 22 mEq/L (23-29); Chloride 105 mEq/L (98-107); Glucose 89 mg/dL (70-105); Osmolality,Calculated 283 (280-300); Phosphorous 4.3 mg/dL (2.7-4.5); Potassium 3.9 mEq/L (3.5-5.1); Sodium 137 mEq/L (136-145); eGFR For African Americans > 60 (> 60); eGFR For Non-African Americans > 60 (> 60)
[2020-05-19] MEDS: levETIRAcetam 250 MG TABLET PO SCH ×2 (09:08→21:34)
[2020-05-19] MEDS: Aspirin Enteric Coated 81 MG Tablet PO SCH (09:08)
[2020-05-19] MEDS: *HR* Heparin 5,000 UNIT/ML VIAL IVP PRN ×2 (09:09→16:47)
[2020-05-19] MEDS: Heparin 25,000 UNIT/250 ML D5W 25,000 UNIT/250 ML IV.SOLN IVC SCH (16:48)
[2020-05-20] MEDS: Valproic Acid Oral Soln 250 MG/5 ML UDC PO SCH ×3 (00:11→11:07)
[2020-05-20] MEDS: *HR* Heparin 5,000 UNIT/ML VIAL IVP PRN ×2 (02:24→09:39)
[2020-05-20 07:20] VITALS: BP 117/85
[2020-05-20] MEDS: Aspirin Enteric Coated 81 MG Tablet PO SCH (09:28)
[2020-05-20] MEDS: levETIRAcetam 250 MG TABLET PO SCH (09:28)
[2020-05-20] MEDS ORDERED: *HR* Rivaroxaban 15 MG TABLET PO SCH (10:45)
== END 2020-05-20 14:41 | disposition home or self-care (01) ==
LOC: 3ANU 08:56 → EMEROOARM 08:56 → 3ANU 14:46
PROVIDERS: ADMIT Internal Medicine; ATTEND Internal Medicine